=== PATIENT | female | born 1990 | race Caucasian/White ===

== ENCOUNTER 2017-07-30 11:32 | Inpatient (IN) | payer OTHER ==
[2017-07-30] MEDS ORDERED: DINOPROSTONE 10 MG VAGINAL SUPPOSITORY VG ONE (13:45)
[2017-07-30 13:51] LABS: BASOPHIL 0.4 % (0-2.0); EOSINOPHIL 0.6 % (0-4.5); MCH 31.9 pg (25.7-33.7); MCHC 35.2 g/dl (32.0-36.0); MEAN CELL VOLUME 90.7 fl (80-96); MEAN PLT VOLUME 8.4 fl (7.5-11.1); NEUTROPHILS 74.1 % (42.8-82.8); PLATELET COUNT 168 K/MM3 (134-434); RDW 14.2 % (11.6-15.6); WHITE BLOOD COUNT 7.6 K/mm3 (4.0-10.0)
--- NOTE | 2017-07-30 14:05 | HP ---
Past Medical History - Primary Care Physician PCP:: Milagros Charles - Admission Chief Complaint: 27 yrs , 40.3 weeks gestation is noted to have no amniotic fluid on us bpp today, she is sent from [facility] office for delivery. Bpp 04/29 , Low amniotic fluid , no pocket 2x2 cm seen , EFW 8'10" . no c/o leaking or pain History of Present Illness: PNC at [address] [place] [address] .Wt gain 23 lbs during pregn work UP :O Pos, , Hbsag neg, Rpr nr, Rubella immune, Hiv neg, Sikcle neg, , Pap nilm, Gc/ct neg, Quantiferon neg, ! hr Gtt 115, GBS pos sono for groewth done at [facility] office. 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: No: Migraine, Seizure Cardiovascular: No: HTN, Murmur Pulmonary: No: Asthma, COPD Gastrointestinal: Yes: Gastritis (rx omeprazol given during pregn) ...: 1 ...Para: 0 ...LMP: 09/25/17 (possible incorrect ) ...EDC by Dates: 07/02/17 (mistaken dates ) ...EDC by Sono: 07/27/17 (40.3 weeks ) Heme/Onc: Yes: Anemia (rx po iron & pnv) Infectious Disease: No: AIDS, HIV, STD's, Tuberculosis Psych: No: Addictions, Anxiety, Bipolar, Depression, Panic - Past Surgical History Past Surgical History: Yes: None Hx Myomectomy: No Hx Transabdominal Cerclage: No - Smoking History Have you smoked in the past 12 months: No - Alcohol/Substance Use Hx Alcohol Use: Yes Number of Drinks Daily: 5 (before , on weekends ) History of Substance Use: reports: None - Social History History of Recent Travel: No Home Medications - Allergies Allergies/Adverse Reactions: Allergies Allergy/AdvReac Type Severity Reaction Status Date / Time No Known Drug Allergies Allergy Verified 07/30/17 13:36 Physical Exam - Maternity Vital Signs: Selected Entries 07/30/17 13:57 Temperature 98.3 F Pulse Rate 85 Respiratory 20 Rate Blood Pressure 137/75 Weight 250 lb Constitutional: Yes: Well Nourished, No Distress, Obese Eyes: Yes: WNL HENT: Yes: WNL, Normocephalic Neck: Yes: WNL Cardiovascular: Yes: WNL, Regular Rate and Rhythm Lungs: Clear to auscultation Breast(s): Yes: WNL - Abdominal Exam/OB Fundal Height: 40 Number of Fetuses: Single Presentation: Vertex Contractions: No Heart Rate Location: Midline Category: I Accelerations: Uniform Decelerations: None - Vaginal Exam/OB Vaginal Bleediing: No Speculum Exam: No Dilatation (cm): close Effacement (%): unefface Amniotic Membrane Status: Intact Presentation: Vertex/Position Station: -4 - Physical Exam Musculoskeletal: Yes: WNL Extremities: Yes: WNL. No: Calf Tenderness Edema: Yes Edema: LLE: 1+, RLE: 1+ Deep Tendon Reflex Grade: Hyperactive,very brisk +4 Psychiatric: Yes: WNL - Labs Lab Results: CBC, BMP 07/30/17 13:40 Laboratory Tests 07/30/17 13:40 INR 0.94 PTT (Actin FS) 26.9 Laboratory Tests 07/30/17 07/30/17 07/30/17 13:40 13:40 13:40 Sodium 139 Potassium 4.2 Chloride 105 Carbon Dioxide 24 Anion Gap 10 BUN 9 Creatinine 0.6 Random Glucose 100 Calcium 8.2 L RPR Titer Nonreactive Blood Type Antibody Screen Negative 07/30/17 13:58 Sodium Potassium Chloride Carbon Dioxide Anion Gap BUN Creatinine Random Glucose Calcium RPR Titer Blood Type O POSITIVE Antibody Screen Hemorrhage Risk Assessment - Risk Factors Medium Risk Factors: Yes: Obesity (BMI >40) Risk Score: 1 Risk Level: Medium Risk Problem List - Problems (1) Post term over 40 weeks Code(s): O48.0 - POST-TERM (2) Oligohydramnios in third trimester Code(s): O41.03X0 - OLIGOHYDRAMNIOS, THIRD TRIMESTER, NOT APPLICABLE OR UNSP (3) Morbid obesity with BMI of 40.0-44.9, adult Code(s): E66.01 - MORBID (SEVERE) OBESITY DUE TO EXCESS CALORIES Z68.41 - BODY MASS INDEX (BMI) 40.0-44.9, ADULT (4) Positive GBS test Code(s): B95.1 - STREPTOCOCCUS, GROUP B, CAUSING DISEASES CLASSD ELSWHR (5) Unfavorable cervix in term Code(s): O34.40 - MATERNAL CARE FOR OTH ABNLT OF CERVIX, UNSP TRIMESTER Assessment/Plan 27 yrs , 40.3 weeks , severe oligohydramnis , unfavorable cx for induction of labor , morbid obesity, GBS pos, pt is explained the r/b/a of induction of labor versus delivery by section , she opted for c/section plan NPO 8 hrs before c/section
[2017-07-30 14:09] VITALS: BMI 44.2
[2017-07-30 14:13] LABS: INR 0.94 (0.82-1.09); PROTHROMBIN TIME (PATIENT) 10.3 SEC (9.98-11.88)
[2017-07-30 14:16] LABS: ACTIVATED PTT 26.9 SECONDS (26.9-34.4)
[2017-07-30 14:17] LABS: ANION GAP 10 (8-16); CALCIUM 8.2 mg/dL (8.5-10.1); CO2 24 mmol/L (21-32); CREATININE 0.6 mg/dL (0.55-1.02); GLUCOSE,RANDOM 100 mg/dL (74-106)
[2017-07-30] MEDS ORDERED: CITRIC ACID/SODIUM CITRATE 30 ML UNIT-DOSE CUP PO ONE (14:26)
[2017-07-30] MEDS ORDERED: ELECTROLYTE-148 SOLN 1,000 ML IV SCH (14:30)
[2017-07-30] MEDS ORDERED: morphine SULFATE/Preservative Free 0.5 MG/ML (1cc Syringe) EP ONE (20:12)
[2017-07-30] MEDS ORDERED: ONDANSETRON 4 MG/2 ML VIAL IVPB PRN (20:12)
[2017-07-30] MEDS ORDERED: IBUPROFEN 800 MG/8 ML IJ IVPB PRN (20:13)
[2017-07-30] MEDS ORDERED: METHYLERGONOVINE MALEATE 0.2 MG/1 ML AMP IM PRN (22:04)
--- NOTE | 2017-07-30 22:16 | OP ---
Operative Note - Note: Operative Date: 07/30/17 Operation: 40.3 weeks, severe oligohydramnios , unfavorable cervix, obesity Findings: 8.42 pm, Baby Boy, Vx, Lop, 7-9, Wt 8'14" Minimal clear Amniotic fluid Both tubes & ovaries normal Dr Rojas Rug Weaver present in the room Surgeon: Milagros Charles Button Sewer Hand: Teo Whitt Anesthesiologist/KITCHEN LEAD: John Padilla Anesthesia: Spinal Specimens Removed: cord blood. placenta Estimated Blood Loss (mls): 600 Drains, Volume Out (mls): 100 (ga color) Fluid Volume Replaced (mls): 2,500 (iv Ancef 2 gm ivpb given ) Operative Report Dictated: Yes
--- NOTE | 2017-07-30 22:28 | PN ---
Delivery - Delivery Section: Primary, Low Flap Transverse (Indication 40.3 weeks, Severe Oligohydramnios,Unfavourable Cervix, Obesity) Type of Anesthesia: Spinal EBL (cc): 600 (urine out put 100 ml ga color ) Delivery, Single - Stages of Labor Date of Delivery: 07/30/17 Time of Delivery: 08:42 Date Placenta Delivered: 07/30/17 Time Placenta Delivered: 08:43 Placenta: Yes: Manual Removal, Uterine Exploration - Condition of Community Outreach Worker/Building Maintenance Superintendent Present: Yes Name: Vandana Rojas Infant Gender: Male Position: Left, OP Total Hours ROM (Hrs/Mins): 2 min scanty fluid - 1 Minute Total Score: 7 5 Minutes Total Score: 9 - [place] Feeding Plan Initial Plan: Elected not to breastfeed exclusively throughout hospitalization Remarks - Remarks Remarks: 27 yrs , post term pregn, 40.3 weeks, bpp6/8, severe oligo , unfavorable cx , GBS pos obese ( BMI 44.3) PNc at , [facility] Intraop course uneventful
[2017-07-30] MEDS: D5W-LR W/ 20 UNITS OXYTOCIN 1,000 ML IV SCH (22:44)
[2017-07-31] MEDS ORDERED: CEFAZOLIN 1 GM/D5W 50 ML IVPB SCH (02:00)
[2017-07-31] MEDS ORDERED: DEXTROSE 5%-WATER - 50 ML IVPB ONE ×2 (02:12→09:02)
[2017-07-31] MEDS ORDERED: ceFAZolin SODIUM 1 GM VIAL ONE ×2 (02:13→09:02)
[2017-07-31] MEDS: CEFAZOLIN 1 GM in DEXTROSE 5%-WATER - 50 ML IVPB SCH ×3 (02:21→17:17)
[2017-07-31] MEDS: D5W-LR W/ 20 UNITS OXYTOCIN 1,000 ML IV SCH (06:32)
[2017-07-31 08:05] LABS: BASOPHIL 0.2 % (0-2.0); EOSINOPHIL 0.2 % (0-4.5); MCH 31.9 pg (25.7-33.7); MCHC 35.1 g/dl (32.0-36.0); MEAN CELL VOLUME 90.7 fl (80-96); MEAN PLT VOLUME 8.9 fl (7.5-11.1); NEUTROPHILS 76.4 % (42.8-82.8); PLATELET COUNT 143 K/MM3 (134-434); RDW 14.3 % (11.6-15.6)
--- NOTE | 2017-07-31 09:02 | PN ---
Progress Note (short form) - Note Progress Note: Anesthesia Post op/Pain Pt seen and examined S:alert and awake Comfortable O: Vital Signs Temperature 98.2 F 07/31/17 06:00 Pulse Rate 81 07/31/17 06:00 Respiratory Rate 18 07/31/17 08:00 Blood Pressure 117/60 07/31/17 06:00 O2 Sat by Pulse Oximetry (%) 98 07/30/17 22:30 CBC, BMP 07/31/17 06:00 07/30/17 13:40 A/P: Current Active Problems Morbid obesity with BMI of 40.0-44.9, adult (Acute) Oligohydramnios in third trimester (Acute) Positive GBS test (Acute) Post term over 40 weeks (Acute) Unfavorable cervix in term (Acute) s/p c section Doing well post op Continue current care Juan Cleaning MD
[2017-07-31] MEDS: ENOXAPARIN NA (PORCINE) 40 MG/0.4 ML DISP.SYRIN SQ SCH (09:14)
[2017-07-31] MEDS: SIMETHICONE 80 MG TAB.CHEW (FP) PO PRN ×3 (10:13→21:30)
--- NOTE | 2017-07-31 11:23 | PN ---
Post Progress Note - Subjective Subjective: no c/o pain c/o Itching Post Day: 1 Type of Delivery: Primary C/S Vital Signs: Vital Signs Temperature 99.1 F 07/31/17 10:00 Pulse Rate 71 07/31/17 10:00 Respiratory Rate 18 07/31/17 11:00 Blood Pressure 106/58 07/31/17 10:00 O2 Sat by Pulse Oximetry (%) 98 07/30/17 22:30 Breast Exam: Yes: Soft, Other (BF ). No: Engorged Uterus: Yes: Fundus Firm, Fundus below umbilicus, Non-tender Incision: Yes: Dressing dry and intact. No: Redness, Oozing Abdomen/GI: Yes: Abdomen soft (bs active ), Abdominal Distention (obese abdomen ), Tolerating PO (clear liquids ). No: Tender, Passing flatus Lochia: Yes: Rubra Lochia, amount: Moderate Extremities: Yes: Calves non-tender (scd in situ ), Edema Perineum: Yes: Intact Activity: Other (pt not oob yet ) - Labs Labs: CBC WBC 9.0 K/mm3 (4.0-10.0) 07/31/17 06:00 RBC 3.18 M/mm3 (3.60-5.2) L 07/31/17 06:00 Hgb 10.1 GM/dL (10.7-15.3) L 07/31/17 06:00 Hct 28.8 % (32.4-45.2) L 07/31/17 06:00 MCV 90.7 fl (80-96) 07/31/17 06:00 MCH 31.9 pg (25.7-33.7) 07/31/17 06:00 MCHC 35.1 g/dl (32.0-36.0) 07/31/17 06:00 RDW 14.3 % (11.6-15.6) 07/31/17 06:00 Plt Count 143 K/MM3 (134-434) 07/31/17 06:00 MPV 8.9 fl (7.5-11.1) 07/31/17 06:00 Neutrophils % 76.4 % (42.8-82.8) 07/31/17 06:00 Lymphocytes % 18.1 % (8-40) 07/31/17 06:00 Monocytes % 5.1 % (3.8-10.2) 07/31/17 06:00 Eosinophils % 0.2 % (0-4.5) 07/31/17 06:00 Basophils % 0.2 % (0-2.0) 07/31/17 06:00 Other Findings, Remarks: rs cta , using incentive spirometer effectively I/o adequate Problem List - Problems (1) Post term over 40 weeks Code(s): O48.0 - POST-TERM (2) Oligohydramnios in third trimester Code(s): O41.03X0 - OLIGOHYDRAMNIOS, THIRD TRIMESTER, NOT APPLICABLE OR UNSP (3) Morbid obesity with BMI of 40.0-44.9, adult Code(s): E66.01 - MORBID (SEVERE) OBESITY DUE TO EXCESS CALORIES Z68.41 - BODY MASS INDEX (BMI) 40.0-44.9, ADULT (4) Positive GBS test Code(s): B95.1 - STREPTOCOCCUS, GROUP B, CAUSING DISEASES CLASSD ELSWHR (5) Unfavorable cervix in term Code(s): O34.40 - MATERNAL CARE FOR OTH ABNLT OF CERVIX, UNSP TRIMESTER Assessment/Plan stable plan encourage po fluids oob , ambulation , deep breathing
[2017-07-31] MEDS: IBUPROFEN 600 MG TABLET (FP) PO PRN (15:51)
[2017-07-31] MEDS: ACETAMINOPHEN 325 MG TABLET (FP) PO PRN ×2 (15:53→21:30)
[2017-07-31] MEDS: oxyCODONE HCL 5 MG TABLET PO PRN (21:30)
[2017-07-31] MEDS: SENNOSIDES/DOCUSATE COMBO (SENNA PLUS) TABLET (UD) PO PRN (21:32)
[2017-07-31] MEDS ORDERED: BISACODYL 10 MG SUPP.RECT RC PRN (22:04)
[2017-08-01] MEDS: ACETAMINOPHEN 325 MG TABLET (FP) PO PRN ×3 (01:44→20:23)
[2017-08-01] MEDS: oxyCODONE HCL 5 MG TABLET PO PRN ×3 (01:45→20:23)
[2017-08-01] MEDS: SIMETHICONE 80 MG TAB.CHEW (FP) PO PRN ×4 (01:45→20:23)
[2017-08-01] MEDS: ENOXAPARIN NA (PORCINE) 40 MG/0.4 ML DISP.SYRIN SQ SCH (09:04)
[2017-08-01] MEDS: PRENATAL VITAMINS W/ FOLIC ACID TABLET (FP) PO SCH (09:04)
[2017-08-01] MEDS: IBUPROFEN 600 MG TABLET (FP) PO PRN ×2 (09:04→14:41)
[2017-08-01] MEDS: FERROUS SO4 325 MG TABLET (FP) PO SCH ×2 (09:04→21:15)
[2017-08-01] MEDS ORDERED: DIPHTH,PERTUSS(ACELL),TET 0.5 ML DISP.SYRIN IM ONE (10:00)
--- NOTE | 2017-08-01 10:04 | PN ---
Post Progress Note - Subjective Subjective: c/o pain scale 07/01 Post Day: 2 Type of Delivery: Primary C/S Vital Signs: Vital Signs Temperature 98.2 F 08/01/17 08:52 Pulse Rate 90 08/01/17 08:52 Respiratory Rate 18 08/01/17 08:52 Blood Pressure 125/77 08/01/17 08:52 O2 Sat by Pulse Oximetry (%) 98 07/30/17 22:30 Breast Exam: Yes: Soft, Other (BF ). No: Engorged Uterus: Yes: Fundus Firm, Fundus below umbilicus, Non-tender Incision: Yes: Alex intact. No: Redness, Oozing Abdomen/GI: Yes: Abdomen soft, Passing flatus, Tolerating PO (diet ). No: Abdominal Distention Lochia: Yes: Rubra Lochia, amount: Moderate Extremities: Yes: Calves non-tender Perineum: Yes: Intact Activity: Ambulating - Labs Labs: CBC WBC 9.0 K/mm3 (4.0-10.0) 07/31/17 06:00 RBC 3.18 M/mm3 (3.60-5.2) L 07/31/17 06:00 Hgb 10.1 GM/dL (10.7-15.3) L 07/31/17 06:00 Hct 28.8 % (32.4-45.2) L 07/31/17 06:00 MCV 90.7 fl (80-96) 07/31/17 06:00 MCH 31.9 pg (25.7-33.7) 07/31/17 06:00 MCHC 35.1 g/dl (32.0-36.0) 07/31/17 06:00 RDW 14.3 % (11.6-15.6) 07/31/17 06:00 Plt Count 143 K/MM3 (134-434) 07/31/17 06:00 MPV 8.9 fl (7.5-11.1) 07/31/17 06:00 Neutrophils % 76.4 % (42.8-82.8) 07/31/17 06:00 Lymphocytes % 18.1 % (8-40) 07/31/17 06:00 Monocytes % 5.1 % (3.8-10.2) 07/31/17 06:00 Eosinophils % 0.2 % (0-4.5) 07/31/17 06:00 Basophils % 0.2 % (0-2.0) 07/31/17 06:00 Problem List - Problems (1) Post term over 40 weeks Code(s): O48.0 - POST-TERM (2) Oligohydramnios in third trimester Code(s): O41.03X0 - OLIGOHYDRAMNIOS, THIRD TRIMESTER, NOT APPLICABLE OR UNSP (3) Morbid obesity with BMI of 40.0-44.9, adult Code(s): E66.01 - MORBID (SEVERE) OBESITY DUE TO EXCESS CALORIES Z68.41 - BODY MASS INDEX (BMI) 40.0-44.9, ADULT (4) Positive GBS test Code(s): B95.1 - STREPTOCOCCUS, GROUP B, CAUSING DISEASES CLASSD ELSWHR (5) Unfavorable cervix in term Code(s): O34.40 - MATERNAL CARE FOR OTH ABNLT OF CERVIX, UNSP TRIMESTER Assessment/Plan stable. plan ct po care
[2017-08-01] MEDS: SENNOSIDES/DOCUSATE COMBO (SENNA PLUS) TABLET (UD) PO PRN (20:23)
[2017-08-02] MEDS: oxyCODONE HCL 5 MG TABLET PO PRN ×4 (01:40→19:52)
[2017-08-02] MEDS: SIMETHICONE 80 MG TAB.CHEW (FP) PO PRN ×4 (01:41→19:53)
[2017-08-02] MEDS: ACETAMINOPHEN 325 MG TABLET (FP) PO PRN ×4 (01:41→19:53)
[2017-08-02 08:59] LABS: BASOPHIL 0.3 % (0-2.0); EOSINOPHIL 1.3 % (0-4.5); MCH 31.4 pg (25.7-33.7); MCHC 34.2 g/dl (32.0-36.0); MEAN CELL VOLUME 91.9 fl (80-96); MEAN PLT VOLUME 8.2 fl (7.5-11.1); NEUTROPHILS 68.2 % (42.8-82.8); PLATELET COUNT 160 K/MM3 (134-434); RDW 14.3 % (11.6-15.6); WHITE BLOOD COUNT 7.9 K/mm3 (4.0-10.0)
--- NOTE | 2017-08-02 09:25 | PN ---
Post Progress Note - Subjective Subjective: c/o pain scvale 03/31 Post Day: 3 Type of Delivery: Primary C/S Vital Signs: Vital Signs Temperature 98.1 F 08/01/17 22:00 Pulse Rate 89 08/01/17 22:00 Respiratory Rate 18 08/01/17 22:00 Blood Pressure 127/83 08/01/17 22:00 O2 Sat by Pulse Oximetry (%) 98 07/30/17 22:30 Breast Exam: Yes: Soft, Other (BF ). No: Engorged Uterus: Yes: Fundus Firm, Fundus below umbilicus, Non-tender Incision: Yes: [place] intact. No: Redness, Oozing Abdomen/GI: Yes: Abdomen soft, Passing flatus (bm not done ), Tolerating PO. No : Abdominal Distention, Tender Lochia: Yes: Rubra Lochia, amount: Moderate Extremities: Yes: Calves non-tender Perineum: Yes: Intact Activity: Ambulating - Labs Labs: CBC WBC 7.9 K/mm3 (4.0-10.0) 08/02/17 08:00 RBC 3.03 M/mm3 (3.60-5.2) L 08/02/17 08:00 Hgb 9.5 GM/dL (10.7-15.3) L 08/02/17 08:00 Hct 27.8 % (32.4-45.2) L 08/02/17 08:00 MCV 91.9 fl (80-96) 08/02/17 08:00 MCH 31.4 pg (25.7-33.7) 08/02/17 08:00 MCHC 34.2 g/dl (32.0-36.0) 08/02/17 08:00 RDW 14.3 % (11.6-15.6) 08/02/17 08:00 Plt Count 160 K/MM3 (134-434) 08/02/17 08:00 MPV 8.2 fl (7.5-11.1) 08/02/17 08:00 Neutrophils % 68.2 % (42.8-82.8) 08/02/17 08:00 Lymphocytes % 24.8 % (8-40) D 08/02/17 08:00 Monocytes % 5.4 % (3.8-10.2) 08/02/17 08:00 Eosinophils % 1.3 % (0-4.5) D 08/02/17 08:00 Basophils % 0.3 % (0-2.0) 08/02/17 08:00 Problem List - Problems (1) Post term over 40 weeks Code(s): O48.0 - POST-TERM (2) Oligohydramnios in third trimester Code(s): O41.03X0 - OLIGOHYDRAMNIOS, THIRD TRIMESTER, NOT APPLICABLE OR UNSP (3) Morbid obesity with BMI of 40.0-44.9, adult Code(s): E66.01 - MORBID (SEVERE) OBESITY DUE TO EXCESS CALORIES Z68.41 - BODY MASS INDEX (BMI) 40.0-44.9, ADULT (4) Positive GBS test Code(s): B95.1 - STREPTOCOCCUS, GROUP B, CAUSING DISEASES CLASSD ELSWHR (5) Unfavorable cervix in term Code(s): O34.40 - MATERNAL CARE FOR OTH ABNLT OF CERVIX, UNSP TRIMESTER (6) delivery, delivered, current hospitalization Code(s): O82 - ENCOUNTER FOR DELIVERY WITHOUT INDICATION (7) Anemia Code(s): D64.9 - ANEMIA, UNSPECIFIED Qualifiers: Anemia type: iron deficiency Assessment/Plan anemia counselled will discharge tomorrow.
--- NOTE | 2017-08-02 09:35 | DS ---
Physical Exam-COUNTERINTELLIGENCE ANALYST Vital Signs: Vital Signs Temperature 98.1 F 08/01/17 22:00 Pulse Rate 89 08/01/17 22:00 Respiratory Rate 18 08/01/17 22:00 Blood Pressure 127/83 08/01/17 22:00 O2 Sat by Pulse Oximetry (%) 98 07/30/17 22:30 Constitutional: Yes: Well Nourished, Obese, Other (pain scale 4/10) Eyes: Yes: WNL HENT: Yes: WNL Neck: Yes: WNL Cardiovascular: Yes: WNL Respiratory: Yes: WNL Gastrointestinal: Yes: WNL, Normal Bowel Sounds, Soft, Abdomen, Obese. No: Distention Renal/: Yes: Other (voiding without difficulty) ....Post : Yes: Uterus firm, Uterus non-tender, Moderate lochia rubra ( perinum intact) Breast(s): Yes: WNL (not engorged . BF) Musculoskeletal: Yes: WNL Extremities: Yes: WNL. No: Calf Tenderness Edema: Yes Edema: LLE: 1+, RLE: 1+ Wound/Incision: Yes: Clean/Dry, Well Approximated, Alex Intact, Open to air Neurological: Yes: WNL ...Motor Strength: WNL Psychiatric: Yes: WNL, Alert, Oriented Labs: CBC, BMP 08/02/17 08:00 07/30/17 13:40 Delivery - Delivery Section: Primary, Low Flap Transverse (Indication 40.3 weeks, Severe Oligohydramnios,Unfavourable Cervix, Obesity) Type of Anesthesia: Spinal Episiotomy/Laceration: None EBL (cc): 600 (urine out put 100 ml ga color ) Delivery, Single - Stages of Labor Date of Delivery: 07/30/17 Time of Delivery: 08:42 Time Placenta Delivered: 08:43 Placenta: Yes: Manual Removal, Uterine Exploration - Condition of Infant Gas Line Repairer/Insurance Risk Analyst Present: Yes Name: Vandana Rojas Gender: Male Weight: 8 lb 14 oz Position: Left, OP Total Hours ROM (Hrs/Mins): 2 min scanty fluid - 1 Minute Total Score: 7 5 Minutes Total Score: 9 - Feeding Plan Initial Plan: Elected not to breastfeed exclusively throughout hospitalization Remarks - Remarks Remarks: 27 yrs , post term pregn, 40.3 weeks, bpp6/8, severe oligo , unfavorable cx , GBS pos obese ( BMI 44.3) PNc at 2, [facility] Intraop course uneventful post op course uneventful sherwin discharge on 08/03/17 pt willrtc for alex removal anemia was counselled Discharge Summary Reason For Visit: LABOR Current Active Problems Anemia (Acute) delivery, delivered, current hospitalization (Acute) Morbid obesity with BMI of 40.0-44.9, adult (Acute) Oligohydramnios in third trimester (Acute) Positive GBS test (Acute) Post term over 40 weeks (Acute) Unfavorable cervix in term (Acute) Condition: Stable - Instructions Diet, Activity, Other Instructions: Post Instructions DIET: Continue good diet high in protein, calcium, and iron rich foods. Drink at least eight (8) glasses of water daily in addition to other fluids. ct Regular diet MEDICATIONS: Continue vitamins and iron as previously directed. Motrin and Tylenol may be taken for minor discomfort. ACTIVITY: Mild to moderate exercise may be started in two (2) weeks. Take frequent rest periods. Resume normal activity after six (6) week check up. WOUND CARE OF OPERATIVE SITE: Continue use of perineal bottle until vaginal discharge stops. Keep area clean. Shower daily. Keep abdominal wound dry. Report any drainage or redness to physician. Tub baths, tampons and douches are not permitted for [address] Breast feeding & or Bottle feeding BREAST CARE: (For those that are not breast feeding): If engorgement occurs: Wear tight fitting bra. Take Tylenol or Motrin for pain. Apply cold packs (ice in bags to each breast ) FAMILY PLANNING: There are many control alternatives to pursue and they should be discussed at your first office visit. You may resume sexual activity after your six (6) week check up. (Remember, breast feeding is not a contraceptive) NEXT PHYSICIAN APPOINTMENT: Be certain to call for a one (1) week appointment, unless otherwise directed. Call [phone] for appt in 1 weeks for wound check Call Clinic or got to Emergency Dept if you have any of the following: Heavy vaginal bleeding Painful urination Leg pain Unusual odor noted to vaginal bleeding High fever Red streaking noted on breast Referrals: Milagros Charles MD [Staff Physician] - Disposition: HOME - Home Medications Comprehensive Discharge Medication List: Ambulatory Orders Iron 1 tab PO DAILY 07/30/17 Vitamins (Sjr) - 1 tab PO DAILY 07/30/17 Acetaminophen [Tylenol .Regular Strength -] 500 mg PO Q4H PRN #30 tablet Ferrous Sulfate [Feosol] 325 mg PO BID #60 tab 08/02/17 Ibuprofen [Motrin -] 600 mg PO Q4H PRN #30 tablet 08/02/17 Vitamins (Sjr) - 1 tab PO DAILY #30 tablet 08/02/17
[2017-08-02] MEDS: PRENATAL VITAMINS W/ FOLIC ACID TABLET (FP) PO SCH (09:44)
[2017-08-02] MEDS: FERROUS SO4 325 MG TABLET (FP) PO SCH ×2 (09:44→21:16)
[2017-08-02] MEDS: ENOXAPARIN NA (PORCINE) 40 MG/0.4 ML DISP.SYRIN SQ SCH (09:45)
--- NOTE | 2017-08-02 14:35 | OP ---
DATE OF OPERATION: 07/30/2017 PREOPERATIVE DIAGNOSIS: A 40.3-week ,severe Oligohydramnios , unfavorable cx for induction, high head at term , obesity. OPERATION: Primary low flap transverse section. SURGEON: Milagros Charles MD VERIFYING MACHINE OPERATOR SURGEON: ANDRIA Navarro ANESTHESIA: Spinal. ANESTHESIOLOGIST: John Padilla MD FINDINGS: This is a 27-year-old 1, para 0 at 40.3 weeks, had a biophysical profile today 6 out of 8. pocket of fluid was noted ? 2 cm .The cervix was closed posterior in the cephalic presentation. The head was floating, Cx unfavourable for induction of labor. the patient opted for a instead of induction of labor. PROCEDURE: Abdomen was shaved, prepped. Zamora catheter was placed. She was taken to the operating room table. Spinal anesthesia was given. She was placed in supine position. Abdomen was painted and draped in the usual manner. A Pfannenstiel incision was made through the skin and subcutaneous tissue. Anterior rectus sheath was incised transversely. Bleeding points were clamped and cauterized. The rectus muscle was from the rectus sheath. Parietal peritoneum was opened vertically, lower flap of the peritoneum was incised transversely, and lower uterine segment was incised transversely. Amniotic fluid was minimal, clear. Baby was delivered at 8:42 p.m. from LOP position, a baby boy. Apgars were 7 and 9. Cord was clamped and cut. Cord blood was collected. Babys weight was [address] Rojas, senior technical editor, was present in the room. The placenta was removed completely with the membranes. Then, closure of the uterine incision was done in two layers. The first layer was closed with a continuous locking Biosyn 0 suture. The second layer was a continuous intermittent locking Biosyn 0 suture. Hemostasis was verified, and the bladder peritoneum was also closed with a Biosyn 0 suture. Both tubes and ovaries were normal. Sponge, instrument, and needle counts were correct. Irrigation was done. Then, closure of the abdomen was done. Parietal peritoneum was closed with a Biosyn 2-0 suture. The muscles were approximated together with Biosyn 0 suture. Interrupted sutures were taken. Then, the anterior rectus sheath was closed below the anterior rectus sheath. Hemostasis was checked. The anterior rectus sheath was sutured with Vicryl 0 sutures. Continuous sutures were taken. Hemostasis was checked in subcutaneous tissue. Interrupted sutures were taken with the Biosyn 0 suture. Then, skin was approximated with frank. Pressure dressing was applied. Blood clots were removed from the vagina. Patient was transferred to the recovery room in stable condition. Estimated blood loss was 600 mL. Intraoperative urine output was 100 mL, and she received 2 g of IV Ancef prior to the incision. She tolerated the procedure well and was transferred to the recovery room in stable condition. Chloe [id number] MTDD
[2017-08-02] MEDS: D5W-LR W/ 20 UNITS OXYTOCIN 1,000 ML IV SCH (19:47)
[2017-08-02] MEDS: IBUPROFEN 600 MG TABLET (FP) PO PRN (19:52)
[2017-08-03] MEDS: ACETAMINOPHEN 325 MG TABLET (FP) PO PRN (03:10)
[2017-08-03] MEDS: SIMETHICONE 80 MG TAB.CHEW (FP) PO PRN (03:10)
[2017-08-03] MEDS: IBUPROFEN 600 MG TABLET (FP) PO PRN (03:11)
[2017-08-03] MEDS: oxyCODONE HCL 5 MG TABLET PO PRN (03:11)
--- NOTE | 2017-08-03 08:16 | PN ---
Post Progress Note - Subjective Subjective: comfortable and doing well, no complaints Post Day: 4 Type of Delivery: Primary C/S Vital Signs: Vital Signs Temperature 98.0 F 08/02/17 22:00 Pulse Rate 85 08/02/17 22:00 Respiratory Rate 18 08/02/17 22:00 Blood Pressure 124/89 08/02/17 22:00 O2 Sat by Pulse Oximetry (%) 98 07/30/17 22:30 Uterus: Yes: Fundus Firm Incision: Yes: Alex intact Abdomen/GI: Yes: Abdomen soft Lochia: Yes: Rubra Lochia, amount: Small Extremities: Yes: Calves non-tender Perineum: Yes: Intact Activity: Ambulating - Labs Labs: CBC WBC 7.9 K/mm3 (4.0-10.0) 08/02/17 08:00 RBC 3.03 M/mm3 (3.60-5.2) L 08/02/17 08:00 Hgb 9.5 GM/dL (10.7-15.3) L 08/02/17 08:00 Hct 27.8 % (32.4-45.2) L 08/02/17 08:00 MCV 91.9 fl (80-96) 08/02/17 08:00 MCH 31.4 pg (25.7-33.7) 08/02/17 08:00 MCHC 34.2 g/dl (32.0-36.0) 08/02/17 08:00 RDW 14.3 % (11.6-15.6) 08/02/17 08:00 Plt Count 160 K/MM3 (134-434) 08/02/17 08:00 MPV 8.2 fl (7.5-11.1) 08/02/17 08:00 Neutrophils % 68.2 % (42.8-82.8) 08/02/17 08:00 Lymphocytes % 24.8 % (8-40) D 08/02/17 08:00 Monocytes % 5.4 % (3.8-10.2) 08/02/17 08:00 Eosinophils % 1.3 % (0-4.5) D 08/02/17 08:00 Basophils % 0.3 % (0-2.0) 08/02/17 08:00 Assessment/Plan as above oob reg diet dc home will see in clinic on wednesday for staple removal
[2017-08-03 09:44] VITALS: BP 134/87; PULSE 78; TEMP 98.3
[2017-08-03] MEDS: FERROUS SO4 325 MG TABLET (FP) PO SCH (10:44)
[2017-08-03] MEDS: PRENATAL VITAMINS W/ FOLIC ACID TABLET (FP) PO SCH (10:44)
[2017-08-03] MEDS: ENOXAPARIN NA (PORCINE) 40 MG/0.4 ML DISP.SYRIN SQ SCH (10:44)
--- NOTE | 2017-08-04 16:37 | PATH ---
Surgical Pathology Report Patient Name: INDRA NICOLE Med. Rec. #: [id number] /Age/Gender: 1990 (Age: 27) / F Account: [id number] Location: [facility] OBS/BAILING MACHINE OPERATOR Taken: 07/30/2017 Received: 08/02/2017 Reported: 08/04/2017 Physicians: Milagros Charles M.D. Specimen(s) Received PLACENTA Clinical History , 40.3 gestational weeks C/section Final Diagnosis PLACENTA, DELIVERY: FOCALLY DISRUPTED THIRD TRIMESTER PLACENTA WITH MILD INCREASE IN PREVILLOUS, PERIVILLOUS, AND PRECHORIONIC FIBRIN DEPOSITION, CALCIFICATIONS, FOCAL INCREASE IN NUMBER OF SYNCYTIAL KNOTS, THREE VESSEL UMBILICAL CORD, AND PLACENTAL MEMBRANES WITH FOCAL LAMELLAR NECROSIS. Electronically Signed Angel Morataya M.D. Gross Description The specimen is received fresh, labeled "placenta" and is a 495 gram, 19.0 x 15.0 x 2.3 cm placenta with attached membranes and umbilical cord. The attached membranes are cuevas, translucent with focal opacities and insert marginally. The umbilical cord measures 25 cm in length and averages 1 cm in diameter. The cord inserts eccentrically, 3 cm to the nearest margin. No true knots or strictures are identified. Cut surface of the umbilical cord reveals 3 vessels. The surface is wright-blue with fibrin deposition and appropriate caliber vessels. The maternal surface is red-brown with focal defects. Sectioning reveals red-brown, spongy parenchyma. No focal lesions are identified. Linseed Oil Order Filler sections are submitted in three cassettes as follows: 1- membrane rolls and umbilical cord; 2-3- full thickness sections of placenta. /08/03/201708/03/2017
== END 2017-08-03 11:40 | disposition home or self-care (01) | DRG 540 ==
LOC: JRADUS 11:32 → JLDR 12:15 → J3N 23:30 → J3W 07-31 13:06
PROVIDERS: ADMIT Obstetrics & Gynecology; ATTEND Obstetrics & Gynecology
PROC: 10D00Z1 Extraction of Products of Conception, Low, Open Approach (ICD-10-PCS; principal; 2017-07-30)
DX: O48.0 Post-term pregnancy (principal); Z3A.40 40 weeks gestation of pregnancy; O41.03X0 Oligohydramnios, third trimester, not applicable or unspecified; O32.4XX0 Maternal care for high head at term, not applicable or unspecified; O99.824 Streptococcus B carrier state complicating childbirth; O34.33 Maternal care for cervical incompetence, third trimester; O99.02 Anemia complicating childbirth; O99.214 Obesity complicating childbirth; E66.8 Other obesity; Z68.41 Body mass index [BMI] 40.0-44.9, adult; Z37.0 Single live birth
CPT/HCPCS: 36415; 76819-TC; 80048; 85025; 85610; 85730; 86593; 86850; 86900; 86901; 88307-TC

== ENCOUNTER 2023-05-19 06:00 | Inpatient (IN) | payer OTHER ==
[2023-05-19] MEDS ORDERED: ELECTROLYTE-148 SOLN 500 ML IV SCH (06:45)
[2023-05-19 07:06] VITALS: BMI 43.9
[2023-05-19] MEDS ORDERED: ELECTROLYTE-148 SOLN 1,000 ML IV SCH (07:15)
[2023-05-19] MEDS ORDERED: CITRIC ACID/SODIUM CITRATE 30 ML UNIT-DOSE CUP PO ONE (07:15)
[2023-05-19] MEDS ORDERED: OXYTOCIN 30 UNITS in 0.9% NS 30 UNIT/500 ML INFUS.BAG IVPB ONE (08:16)
[2023-05-19] MEDS ORDERED: ceFAZolin SODIUM 1 GM VIAL ONE (08:17)
[2023-05-19] MEDS ORDERED: ONDANSETRON 4 MG/2 ML VIAL ONE ×2 (08:17→08:29)
[2023-05-19] MEDS ORDERED: DEXAMETHASONE SOD PHOSPHATE 4 MG/1 ML VIAL ONE (08:17)
[2023-05-19] MEDS ORDERED: METOCLOPRAMIDE HCL INJECTION 10 MG/2 ML VIAL ONE (08:17)
[2023-05-19] MEDS ORDERED: PHENYLEPHRINE HCL 10 MG/1 ML SINGLE DOSE VIAL ONE (08:17)
[2023-05-19] MEDS ORDERED: FENTANYL CITRATE/PF 50 MCG/ML VIAL ONE (08:18)
[2023-05-19] MEDS ORDERED: morphine SULFATE/PF 1 MG/2 ML (2cc Syringe - QUVA) ONE (08:19)
[2023-05-19] MEDS ORDERED: ePHEDrine SULFATE 50 MG/1 ML AMPULE ONE (08:21)
[2023-05-19] MEDS ORDERED: morphine SULFATE/PF 1 MG/2 ML (2cc Syringe - QUVA) IT ONE (08:40)
[2023-05-19] MEDS ORDERED: KETOROLAC TROMETHAMINE 30 MG/1 ML VIAL ONE (09:40)
[2023-05-19] MEDS ORDERED: ONDANSETRON 4 MG/2 ML VIAL IVPUSH PRN (10:04)
[2023-05-19] MEDS ORDERED: SIMETHICONE 80 MG TAB.CHEW (FP) PO PRN (10:06)
[2023-05-19] MEDS ORDERED: IBUPROFEN 800 MG/8 ML IJ IVPB PRN (10:06)
[2023-05-19] MEDS ORDERED: METHYLERGONOVINE MALEATE 0.2 MG/1 ML AMP IM PRN (10:06)
[2023-05-19] MEDS ORDERED: ACETAMINOPHEN 1000 MG/100 ML BAG IVPB PRN (10:09)
[2023-05-19] MEDS: ELECTROLYTE-148 SOLN 1,000 ML IV SCH (10:20)
[2023-05-19] MEDS: OXYTOCIN 20 UNITS in 0.9% NS 20 UNIT/1,000 ML INFUS.BAG IV SCH ×2 (12:34→22:00)
[2023-05-19] MEDS: MAG HYDROX/AL HYDROX/SIMETH 30 ML UNIT-DOSE CUP PO PRN (18:23)
[2023-05-19] MEDS ORDERED: oxyCODONE HCL 5 MG TABLET PO PRN ×2 (22:06)
[2023-05-19] MEDS: FERROUS SO4 325 MG TABLET (FP) PO SCH (23:13)
[2023-05-20] MEDS: MAG HYDROX/AL HYDROX/SIMETH 30 ML UNIT-DOSE CUP PO PRN (05:35)
[2023-05-20 07:34] LABS: BASO % 0.2 % (0-2.0); EOS % 0.3 % (0-4.5); HEMATOCRIT 27.6 % (32.4-45.2); HEMOGLOBIN 9.4 GM/dL (10.7-15.3); LYMPH % 17.8 % (8-40); MCH 30.8 pg (25.7-33.7); MCHC 34.1 g/dl (32.0-36.0); MEAN CELL VOLUME 90.4 fl (80-96); MEAN PLT VOLUME 8.1 fl (7.5-11.1); MONO % 6.5 % (3.8-10.2); NEUT % 75.2 % (42.8-82.8); PLATELET COUNT 158 10^3/uL (134-434); RBC 3.05 M/mm3 (3.60-5.2); RDW 13.8 % (11.6-15.6); WHITE BLOOD COUNT 8.9 K/mm3 (4.0-10.0)
[2023-05-20] MEDS: IBUPROFEN 600 MG TABLET (FP) PO PRN ×3 (08:23→21:32)
[2023-05-20] MEDS: PRENATAL VITAMINS W/ FOLIC ACID TABLET (FP) PO SCH (09:25)
[2023-05-20] MEDS: FERROUS SO4 325 MG TABLET (FP) PO SCH ×2 (09:25→21:31)
[2023-05-20] MEDS ORDERED: BISACODYL 10 MG SUPP.RECT RC PRN (10:06)
[2023-05-20] MEDS: ACETAMINOPHEN 325 MG TABLET (FP) PO PRN (18:29)
[2023-05-20] MEDS: SENNOSIDES/DOCUSATE COMBO (SENNA PLUS) TABLET (UD) PO PRN (21:32)
[2023-05-21] MEDS: IBUPROFEN 600 MG TABLET (FP) PO PRN ×4 (05:13→21:21)
[2023-05-21] MEDS: ACETAMINOPHEN 325 MG TABLET (FP) PO PRN ×2 (07:50→17:55)
[2023-05-21] MEDS: PRENATAL VITAMINS W/ FOLIC ACID TABLET (FP) PO SCH (10:37)
[2023-05-21] MEDS: FERROUS SO4 325 MG TABLET (FP) PO SCH ×2 (10:37→21:56)
[2023-05-21] MEDS: ELECTROLYTE-148 SOLN 1,000 ML IV SCH (20:50)
[2023-05-21] MEDS: SENNOSIDES/DOCUSATE COMBO (SENNA PLUS) TABLET (UD) PO PRN (21:56)
[2023-05-21 23:43] VITALS: RESP 18
[2023-05-22] MEDS: IBUPROFEN 600 MG TABLET (FP) PO PRN ×3 (02:05→10:03)
[2023-05-22] MEDS: PRENATAL VITAMINS W/ FOLIC ACID TABLET (FP) PO SCH (09:59)
[2023-05-22] MEDS: FERROUS SO4 325 MG TABLET (FP) PO SCH (09:59)
[2023-05-22 11:10] VITALS: BP 121/79; PULSE 80; TEMP 97.4
== END 2023-05-22 12:11 | disposition home or self-care (01) | DRG 540 ==
LOC: JLDR 06:00 → J3W 11:40
PROVIDERS: ADMIT Obstetrics & Gynecology; ATTEND Obstetrics & Gynecology
PROC: 10D00Z1 Extraction of Products of Conception, Low, Open Approach (ICD-10-PCS; principal; 2023-05-19)
DX: O34.211 Maternal care for low transverse scar from previous cesarean delivery (principal); Z3A.39 39 weeks gestation of pregnancy; Z37.0 Single live birth
CPT/HCPCS: 36415; 85025; 86850; 86900; 86901; 88307-TC; 94010